=== PATIENT | female | born 1935 | race Caucasian/White ===

== ENCOUNTER 2021-01-07 18:59 | Emergency (ER) | payer MEDICARE, SELFPAY ==
--- NOTE | 2021-01-07 19:05 | ED.GENADULT ---
HPI - General Adult General Chief complaint: Neck Pain/Injury Stated complaint: pain in neck back arm and head Time Seen by Provider: 01/07/21 19:21 Source: patient and RN notes reviewed Mode of arrival: ambulatory Limitations: no limitations History of Present Illness HPI narrative: 85-year-old female presents with concern for pain between the left neck and shoulder that shoots to her scalp and down her arm. Reports several days prior to the pain she was scrubbing cardoza off the side of her house. She denies any injury, trauma. She denies any past neck injury or trauma. She denies weakness in any extremity, headache, vision changes, loss of bowel or bladder function. Reports it is very difficult to find a comfortable position, pain is exacerbated by any movement of her neck. Reports she tried ice which helps her get to sleep. She tried leftover pain medicine with no relief MD complaint: Neck pain Related Data Home Medications Medication Instructions Recorded Confirmed levothyroxine 50 mcg PO DAILY 01/07/21 01/07/21 Allergies Allergy/AdvReac Type Severity Reaction Status Date / Time Sulfa (Sulfonamide Allergy Unknown Verified 01/07/21 19:14 Antibiotics) Review of Systems Review of Systems: Narrative: CONSTITUTIONAL: Denies malaise, chills, sweats, or fever. EYES: Denies visual changes CARDIOVASCULAR: Denies chest pain, palpitations, or edema. RESPIRATORY: Denies cough or dyspnea. GASTROINTESTINAL: Denies loss of bowel function GENITOURINARY: Denies loss of bladder function SKIN: Denies lacerations, abrasions, redness, bruising MUSCULOSKELETAL: Reports pain between the left neck and shoulder that shoots down the arm and up the scalp NEUROLOGIC: Denies numbness, weakness, or headache. All systems reviewed & are unremarkable except as noted in HPI and below PMFSH Social History Social History Gender identity (if verbalized by the patient): Female Comments At time of signature, agree with nursing past medical, surgical, social and family history. There is no relevant family history pertinent to the presenting complaint Exam Narrative: Exam Narrative: GENERAL: Well-appearing, well-nourished, and in no acute distress. HEAD: Normocephalic, atraumatic. EYES: PERRLA and EOMI. NECK: Supple. No lymphadenopathy. Carotids easily palpable, no jugular vein distention CHEST: Clear to auscultation. No respiratory distress. HEART: Regular rate and rhythm. Distal pulses palpable and equal, cap refill <3 seconds MUSCULOSKELETAL: Normal range of motion and strength in all extremities; 5/5 strength in upper extremities. Normal sensation in dermatomal distributions with sensitivity to light touch and pain. No midline back tenderness to palpation. No paraspinal tenderness. Transfers from lying to sitting to standing. SKIN: Warm, dry, no rash. No ecchymosis, erythema, open wounds to neck or back. NEURO: No focal deficits. Alert and oriented x3. Reflexes intact. Normal gait. PSYCH: Normal mood and affect Course Course Emergency Course: Patient is aware of diagnosis, understands and agrees to treatment plan. Anticipatory guidance given. Patient agrees to follow-up as directed and is aware of reasons to seek care at the emergency department. Portions of this record may have been created with voice recognition software Vital Signs Vital signs: Vital Signs Temperature 99 F 01/07/21 19:06 Pulse Rate 84 01/07/21 19:06 Respiratory Rate 16 01/07/21 19:06 Blood Pressure 195/74 H 01/07/21 19:06 Pulse Oximetry 100 01/07/21 19:06 Temperature 99 F 01/07/21 19:06 Pulse Rate 84 01/07/21 19:06 Respiratory Rate 16 01/07/21 19:06 Blood Pressure 195/74 H 01/07/21 19:06 Pulse Oximetry 100 01/07/21 19:06 Reviewed. Medical Decision Making MDM Narrative Medical decision making narrative: Exam findings show no acute concerns or changes; patient is non-toxic appearing and is in no distress. Patient is
[2021-01-07 19:06] VITALS: BP 195/74; PULSE 84; RESP 16; TEMP 37.2; O2SAT 100
== END 2021-01-07 19:36 | disposition home or self-care (01) ==
PROVIDERS: Emergency Provider Nurse Practitioner; PCP Internal Medicine Geriatric Medicine
DX: M43.6 Torticollis (principal); E03.9 Hypothyroidism, unspecified
CPT/HCPCS: 99213; G0463

== ENCOUNTER 2022-10-29 10:03 | Emergency (ER) | payer MEDICARE, SELFPAY ==
--- NOTE | ~2022-10-29 | XR_ITS ---
EXAMINATION: XR wrist RT min 3V INDICATION: Generalized pain and swelling of the right wrist TECHNIQUE: Four views of the right wrist are obtained. COMPARISON: None available FINDINGS: No fracture is identified. 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 There is mild soft tissue swelling of the wrist. IMPRESSION: 1. Soft tissue swelling and osteoarthritis without acute osseous abnormality. Reviewed, dictated and finalized at location B.
[2022-10-29 10:18] VITALS: BP 182/67; PULSE 74; RESP 16; TEMP 36.6; O2SAT 99
--- NOTE | 2022-10-29 10:39 | ED.EXTPRO ---
HPI - Extremity Problem General Chief complaint: Extremity Problem,Nontraumatic Stated complaint: right hand to elbow pain Time Seen by Provider: 10/29/22 10:39 Source: patient Mode of arrival: ambulatory Limitations: no limitations History of Present Illness HPI Narrative: 86 y/o female presented for c/o right hand pain at the thumb and wrist for 3-4 days. States it started after raking gumballs in the yard, pressing down on the machine. endorses swelling and redness to the thumb and decreased ROM due to the pain. Reports chronic thumb and wrist pain. She has taken extra-strength tumeric, and soaked in Epson salts without relief. States pain radiates from the wrist to the elbow and causes some nausea due to the pain. Denies numbness, tingling, weakness of the extremity. Related Data Home Medications Medication Instructions Recorded Confirmed levothyroxine 50 mcg tablet 50 mcg PO DAILY 01/07/21 10/29/22 Allergies Allergy/AdvReac Type Severity Reaction Status Date / Time Sulfa (Sulfonamide Allergy Unknown Verified 10/29/22 10:17 Antibiotics) Review of Systems Review of Systems: CONSTITUTIONAL: Denies body aches, fever, chills CARDIOVASCULAR: Denies chest pain, palpitations, or edema. RESPIRATORY: Denies cough or dyspnea. GASTROINTESTINAL: Denies abdominal pain, nausea, vomiting, or diarrhea. SKIN: Denies rash, itching, or wounds. MUSCULOSKELETAL: per HPI NEUROLOGIC: Denies headache, numbness, tingling, or weakness. All systems reviewed & are unremarkable except as noted in HPI and below PMFSH Past Medical History Medical History (Updated 10/29/22 @ 11:15 by Silke Quintero APRN) Hypothyroid Social History Social History Gender identity (if verbalized by the patient): Female Comments At time of signature, I have reviewed and agree with nursing past medical, surgical, social and family history unless otherwise noted. Please see nursing chart for further information. There is no relevant family history pertinent to the presenting complaint Exam Narrative: GENERAL: Well-appearing, well-nourished, and in no acute distress. HEAD: Normocephalic, atraumatic. CHEST: Speaks in full sentences. No respiratory distress. HEART: Regular rate and rhythm. Normal and equal peripheral pulses. EXTREMITIES: Right 1st metacarpal area with moderate swelling and palmar erythema, endorses pain also to the ulnar aspect of wrist. Tenderness over 1st MCP. Decreased strength and ROM to hand at wrist and all fingers due to pain. Hand has normal sensation, No ecchymosis. No open wounds, skin tenting, or obvious deformity; alignment normal, pulse palpable and equal bilaterally, skin warm, dry, pink. Capillary refill less than 3 seconds. SKIN: Warm, dry, no rash. NEURO: Alert and oriented x3. PSYCH: Normal mood and affect Course Course Emergency Course: Patient is aware of diagnosis, understands and agrees to treatment plan. Anticipatory guidance given. Patient agrees to follow-up as directed and is aware of reasons to seek care at the emergency department. Portions of this record may have been created with voice recognition software Level of Care: Express Care Visit Vital Signs Vital signs: Vital Signs Temperature 97.9 F 10/29/22 10:18 Pulse Rate 74 10/29/22 10:18 Respiratory Rate 16 10/29/22 10:18 Blood Pressure 182/67 H 10/29/22 10:18 Pulse Oximetry 99 10/29/22 10:18 Oxygen Delivery Room Air 10/29/22 10:18 Temperature 97.9 F 10/29/22 10:18 Pulse Rate 74 10/29/22 10:18 Respiratory Rate 16 10/29/22 10:18 Blood Pressure 182/67 H 10/29/22 10:18 Pulse Oximetry 99 10/29/22 10:18 Oxygen Delivery Room Air 10/29/22 10:18 Reviewed Procedures Orthopedic Splinting/Casting right wrist: Upper Extremity Immobilizer: Corey wrap MDM - Extremity (Nontraumatic) MDM Narrative Medical decision making narrative
== END 2022-10-29 11:17 | disposition home or self-care (01) ==
PROVIDERS: Emergency Provider Nurse Practitioner Family; PCP Internal Medicine Geriatric Medicine
DX: M79.644 Pain in right finger(s) (principal); E03.9 Hypothyroidism, unspecified
CPT/HCPCS: 73110; 99213; G0463